=== PATIENT | female | born 1990 | race African-American/Black ===

== ENCOUNTER 2016-12-11 20:23 | Inpatient (IN) | payer OTHER ==
--- NOTE | ~2016-12-11 | DS ---
Unit #: [id number] #: [id number] Patient: CHELA MONACO [id number] [address] [place], [place] [address] [id number] I MR#: [id number] NAME: CHELA MONACO ROOM: 467 Age: 26 Sex: F Admission Date: 12/12/2016 : 1990 Discharge Date: 12/14/2016 Attending Physician: Frandy Howard M.D. Primary Care Physician: [facility] DISCHARGE SUMMARY CONSULTATIONS None. PROCEDURE PERFORMED On 12/12 she underwent laparoscopic cholecystectomy. ADMITTING DIAGNOSIS Chronic cholecystitis. DISCHARGE DIAGNOSIS Chronic cholecystitis. SECONDARY DIAGNOSIS Elevated transaminases. BRIEF HOSPITAL COURSE This is a 26-year-old lady who was admitted with symptoms that were related more to shortness of air and dyspnea. However, workup showed chronic cholecystitis, and she had more right upper quadrant pain, nausea during her workup. We were asked to see the patient from the ER, and she was consented for laparoscopic cholecystectomy based on imaging studies and symptoms. She underwent cholecystectomy and postoperatively had some nausea and some pain control issues, and because of that, she was kept an additional day. Her total bilirubin and alkaline phosphatase were normal, as well as a white count of 5,000 and a hemoglobin of 10. She did have an increase in her transaminases that was felt to be unrelated to her surgical procedure. DISPOSITION Discharged to home. FOLLOW-UP She is to follow up with Dr. Chavarria in the office in 2 weeks. DISCHARGE INSTRUCTIONS 1. She has been given instructions that it is okay to shower. 2. No driving until she is off pain pills for 24 hours. 3. Activity as tolerated. MEDICATIONS She was also given a script for [place] and Phenergan. Unit #: [id number] #: [id number] Patient: CHELA MONACO Dictated by... Ramo Luevano III, M.D. VCL/db TD: 12/15/2016 07:50 JOB #: [id number] DISCHARGE SUMMARY Page 1 of 1 X Lusco,Vincent C III MD X DISCHARGE SUMMARY
--- NOTE | ~2016-12-11 | EKG ---
PATIENT: CHELA MONACO UNIT #: [id number] Ventricular Rate: 80 BPM Atrial Rate: 80 BPM P-R Interval: 130 ms QRS Duration: 66 ms Q-T Interval: 358 ms QTC Calculation(Bezet): 412 ms P [place]: 59 degrees Calculated R [place]: 59 degrees Calculated T [place]: 28 degrees Diagnosis Line: Normal sinus rhythm with sinus arrhythmia Diagnosis Line: Possible Left atrial enlargement Diagnosis Line: Borderline ECG Diagnosis Line: When compared with ECG of 26-MAY-2016 02:01, Diagnosis Line: Premature atrial complexes are no longer Present Diagnosis Line: Confirmed by EUGENE ARELLANO MD ([id number]) on Diagnosis Line: 12/12/2016 8:54:55 AM INTERPRETING MD: EILEEN BRIONES
--- NOTE | ~2016-12-11 | OR ---
Unit #: [id number] #: [id number] Patient: CHELA MONACO [id number] [address] [place], [place] [address] [id number] Angelica MR#: [id number] NAME: CHELA MONACO ROOM: 467 Date of Procedure: 12/12/2016 Admission Date: 12/12/2016 Surgeon: Gurjit Chavarria M.D. : 1990 Attending Physician: Frandy Howard M.D. Primary Care Physician: [facility] OPERATIVE REPORT PREOPERATIVE DIAGNOSIS Cholecystitis. POSTOPERATIVE DIAGNOSIS Cholecystitis. PROCEDURE PERFORMED Laparoscopic cholecystectomy. ASSISTANT Ramo Luevano M.D. ANESTHESIA General endotracheal anesthesia. ESTIMATED BLOOD LOSS Minimal. IV FLUIDS 800 crystalloid. COMPLICATIONS None. INDICATIONS FOR PROCEDURE The patient is a young lady, who presents with right upper quadrant abdominal pain. Workup was consistent with cholecystitis. DESCRIPTION OF PROCEDURE The patient was taken to the operating theater and placed in supine position. General anesthesia was induced. Her abdomen was prepped and draped. A 5-mm Optiview trocar was placed in the right upper quadrant without difficulty. The abdomen was insufflated to 15 mmHg with CO2. Under direct vision, I placed a subxiphoid 10 mm, right lateral 5 mm, umbilical 5 mm. General inspection of the abdomen revealed acute cholecystitis with distended gallbladder. This was retracted up over the liver. I dissected the neck of the gallbladder and from the cystic duct. Its junction with the gallbladder was confirmed. It was thus skeletonized, doubly hemoclipped, and divided. The cystic artery laid immediately posterior. This was skeletonized, doubly hemoclipped, and divided. The gallbladder was removed from the gallbladder bed with Bovie electrocautery and delivered via the subxiphoid port. Hemostasis was Unit #: [id number] #: [id number] Patient: CHELA MONACO adequate. I removed the ports under direct vision and closed the fascia with 0 Vicryl and skin with 4-0 Vicryl. The patient tolerated the procedure well and sent to recovery room in good condition. Dictated by... Gurjit Chavarria M.D. GIORGIO/saad TD: 12/12/2016 23:34 JOB #: [id number] OPERATIVE REPORT Page 1 of 1 X Gurjit Chavarria MD PROCEDURE OPERATIVE NOTE
--- NOTE | ~2016-12-11 | CR72 ---
[facility] A Service of [facility] & [facility] RADIOLOGY TEXT RESULTS PATIENT: CHELA MONACO LOCATION: [facility] : [birth year] UNIT #: [id number] AGE: [address]: Edgar Arambula MD SEX: F ORDER DR: [id number] [facility] [address] [place], [place] [address] [id number] E MR#: [id number] Acc #: [id number] NAME: CHELA MONACO : 1990 SEX: F STUDY DATE/TIME: 12/11/2016 21:31 UNIT: [facility] ROOM: STUDY DESCRIPTION: CR Chest Single View Portable Attending Physician: Edgar Arambula M.D. Ordering Physician: Edgar Arambula M.D. Primary Care Physician: [facility] MEDICAL IMAGING REPORT This report is preliminary unless electronic signature is present EXAM Portable chest HISTORY Chest pain mid chest, hurts to breathe, onset today. COMPARISON 04/28/2016 FINDINGS A single AP portable view of the chest shows both lungs to be clear. The heart is normal in size. The mediastinal contour is normal. No significant bone abnormalities are seen. IMPRESSION Normal portable chest. Dictated by... Chuck Loja M.D. THIS IS AN ELECTRONICALLY VERIFIED REPORT Chuck Loja M.D. at 12/11/2016 10:35 PM Coby TD: 12/11/2016 22:31 JOB #: [id number] MEDICAL IMAGING REPORT Page 1 of 1 COPY
--- NOTE | ~2016-12-11 | CO ---
Unit #: [id number] #: [id number] Patient: CHELA MONACO [id number] [address] [place], [place] [address] [id number] I MR#: [id number] NAME: CHELA MONACO ROOM: 238 Age: 26 Sex: F Admission Date: 12/12/2016 : 1990 Attending Physician: Frandy Howard M.D. Primary Care Physician: [facility] CONSULTATION REPORT BRIEF HISTORY Patient is a 26-year-old lady who presents with epigastric right upper quadrant abdominal pain radiating to her back. Also, some shortness of breath. Some nausea, no vomiting, normal bowel movements, and no fevers. PAST HISTORY None. She has had no surgery and no chronic medications. SOCIAL HISTORY No smoking. No alcohol. FAMILY HISTORY Negative for GI malignancy. REVIEW OF SYSTEMS No cardiopulmonary complaints at this time. Else, 10 systems reviewed and negative. PHYSICAL EXAMINATION GENERAL: She is awake, alert, and appropriate. VITAL SIGNS: Currently afebrile. HEENT: Unremarkable. NECK: Supple. No JVD. Trachea midline. LUNGS: Clear to auscultation bilaterally. Breath sounds symmetric. CARDIOVASCULAR: Regular rate and rhythm. ABDOMEN: Soft. It is tender in the right upper quadrant. No rebound. No masses. No hernias. EXTREMITIES: No clubbing, cyanosis, or edema. DIAGNOSTIC STUDIES LABORATORY: Showed normal white count. Normal chemistries. IMAGING: Ultrasound shows multiple gallstones with gallstone impacted at the neck of the gallbladder. ASSESSMENT Cholecystitis. PLAN Recommend laparoscopic cholecystectomy. Discussed in detail risks and benefits. All questions were answered. Unit #: [id number] #: [id number] Patient: CHELA MONACO Dictated by... Dm Rao/gavino TD: 12/12/2016 10:35 JOB #: [id number] CONSULTATION REPORT Page 1 of 1 X Gurjit Chavarria MD X CONSULTATION REPORT
--- NOTE | ~2016-12-11 | US67 ---
[facility] A Service of [facility] RADIOLOGY TEXT RESULTS PATIENT: CHELA MONACO LOCATION: [facility] 238-01 : [birth year] UNIT #: [id number] AGE: [address]: Frandy Howard SEX: F ORDER DR: [id number] [facility] [address] [place], [place] [address] [id number] E MR#: [id number] Acc #: [id number] NAME: CHELA MONACO : 1990 SEX: F STUDY DATE/TIME: 12/11/2016 23:07 UNIT: [facility] ROOM: STUDY DESCRIPTION: US Gallbladder Attending Physician: Edgar Arambula M.D. Ordering Physician: Edgar Arambula M.D. Primary Care Physician: [facility] MEDICAL IMAGING REPORT This report is preliminary unless electronic signature is present EXAM Gallbladder ultrasound, 12/11 23:07 INDICATIONS Abdominal pain for 1 year but worsened today. FINDINGS Sonographic evaluation is performed of the right upper quadrant in multiple planes. Comparison is made with CT abdomen from 05/26/2016. Pancreas is normal. Liver parenchyma is homogeneous and normal without a focal mass. Main portal vein patent by Doppler. Right kidney is morphologically normal and nonobstructed. Gallbladder contains stones, including a stone in the gallbladder neck. There is no gallbladder wall thickening. However, the compressor operator portable does report a positive sonographic Patel's sign. Common duct is normal at 4 mm internal diameter. IMPRESSION 1. Gallstones, including a stone that may be impacted in the gallbladder neck. The gallbladder is mildly distended but there is no gallbladder wall thickening. However, the compressor operator portable does report a positive sonographic Patel's sign. Patient could be further evaluated with a HIDA scan, if needed, to assess for the possibility of acute cholecystitis. No biliary obstruction is seen. 2. The remainder of the right upper quadrant ultrasound is normal. Dictated by... Judson Marie Jr., M.D. THIS IS AN ELECTRONICALLY VERIFIED REPORT Judson Marie Jr., M.D. at 12/12/2016 5:35 AM RLK/psc [facility] A Service of [facility] RADIOLOGY TEXT RESULTS PATIENT: CHELA MONACO LOCATION: A 238-01 : [birth year] UNIT #: [id number] AGE: [address]: Frandy Howard SEX: F ORDER DR: TD: 12/12/2016 00:37 JOB #: [id number] MEDICAL IMAGING REPORT Page 1 of 1 COPY
[~2016-12-11 20:23] MED LIST: BACTRIM DS TABL1 TA1 PO; VOLTAREN75 MG PO; ZOFRAN ODT4 MG PO
[2016-12-11 21:43] LABS: BASOPHIL% 0.4 % (0-2.5); EOSINOPHIL# 0.1 X10e3 (0-0.7); EOSINOPHIL% 1.5 % (0.0-7.0); HEMATOCRIT 36.3 % (35.0-45.0); HEMOGLOBIN 11.6 gm/dL (12.0-16.0); LYMPHOCYTE# 3.8 X10e3 (1.0-3.5); LYMPHOCYTE% 45.8 % (17.0-45.0); MEAN CELL VOLUME 83.6 FL (83-96); MEAN CORPUSCULAR HEMOGLOBIN 26.8 PG (28-34); MEAN CORPUSCULAR HGB CONC 32.1 g/dL (30-36); MEAN PLATELET VOLUME 8.2 FL (6.5-11.5); MONOCYTE# 0.8 X10e3 (0-1.0); MONOCYTE% 9.3 % (3.0-12.0); NEUTROPHIL# 3.5 X10e3 (1.5-7.1); PLATELET COUNT 283 X10e3 (140-420); RED BLOOD COUNT 4.34 X10e (3.90-5.30); RED CELL DISTRIBUTION WIDTH 14.7 % (11.0-15.5); WHITE BLOOD COUNT 8.2 X10e3 (4.0-10.5)
[2016-12-11 21:46] LABS: DIFF IND NO
[2016-12-11 22:10] LABS: ALBUMIN SERUM 4.1 g/dL (3.5-5.0); BILIRUBIN, DIRECT 0.1 mg/dL (0.0-0.2); BILIRUBIN,INDIRECT 0.2 mg/dL (0.0-0.9); BILIRUBIN,TOTAL 0.3 mg/dL (0.2-2.0); BUN/CREATININE RATIO 27.5; CREATININE SERUM 0.4 mg/dL (0.6-1.4); GLOM FILT RATE Estimated 165.5 mL/min (>60); POTASSIUM 3.4 mmol/L (3.5-5.1)
[2016-12-12] MEDS ORDERED: NO MEDICATIONS (02:36)
[2016-12-14 02:53] LABS: BASOPHIL% 0.5 % (0-2.5); EOSINOPHIL% 0.8 % (0.0-7.0); HEMATOCRIT 33.4 % (35.0-45.0); HEMOGLOBIN 10.7 gm/dL (12.0-16.0); LYMPHOCYTE% 52.4 % (17.0-45.0); MEAN CELL VOLUME 84.1 FL (83-96); MEAN CORPUSCULAR HEMOGLOBIN 26.9 PG (28-34); MEAN PLATELET VOLUME 8.4 FL (6.5-11.5); MONOCYTE# 0.7 X10e3 (0-1.0); MONOCYTE% 12.6 % (3.0-12.0); NEUTROPHIL% 33.7 % (40-75); PLATELET COUNT 247 X10e3 (140-420); RED BLOOD COUNT 3.97 X10e (3.90-5.30); RED CELL DISTRIBUTION WIDTH 14.7 % (11.0-15.5); WHITE BLOOD COUNT 5.8 X10e3 (4.0-10.5)
[2016-12-14 02:54] LABS: DIFF IND YES
[2016-12-14 03:22] LABS: ALBUMIN SERUM 3.6 g/dL (3.5-5.0); CALCIUM SERUM 8.7 mg/dL (8.4-10.2); CREATININE SERUM 0.8 mg/dL (0.6-1.4); GLOM FILT RATE Estimated 117.2 mL/min (>60); POTASSIUM 3.4 mmol/L (3.5-5.1); PROTEIN TOTAL SERUM 6.7 g/dL (6.0-8.3)
[2016-12-14 03:36] LABS: ANISOCYTOSIS SL; OVALOCYTES PRESENT; PLATELET ESTIMATE NORMAL (NORMAL)
[2016-12-14] MEDS ORDERED: HYDROCODON-ACE1 EAC9 PO (09:01)
[2016-12-14] MEDS ORDERED: PHENERGAN25 M1 PO (09:02)
== END 2016-12-14 10:10 | disposition home or self-care (01) | DRG 419 ==
LOC: CED 20:23 → C4C 12-12 00:25 → CEDOF 12-12 00:25 → CED 12-12 00:25 → C4C 12-12 00:25 → CEDOF 12-12 01:42 → C2A 12-12 01:42 → C4C 12-12 18:16 → CPACUOF 12-12 18:43 → C4C 12-12 19:00
PROVIDERS: Emergency Medicine; Surgery
PROC: 0FT44ZZ Resection of Gallbladder, Percutaneous Endoscopic Approach (ICD-10-PCS; principal; 2016-12-12 15:30)
DX: K80.10 Calculus of gallbladder with chronic cholecystitis without obstruction (principal); R74.0 Nonspecific elevation of levels of transaminase and lactic acid dehydrogenase [LDH]
CPT/HCPCS: 36415; 71010; 76705; 80048; 80053; 80076; 83690; 84703; 85025; 88304; 93005; 96374; 96375; 99285; J0131; J0330; J1100; J1885; J2250; J2270; J2405; J2543; J2710; J3010

== ENCOUNTER 2016-12-23 00:47 | Emergency (ER) | payer OTHER ==
[~2016-12-23 00:47] MED LIST changes: +HYDROCODON-ACE1 EAC9 PO; +NO MEDICATIONS; +PHENERGAN25 M1 PO
[2016-12-23 03:46] LABS: URINE SOURCE CLEAN CATCH
[2016-12-23 03:50] LABS: URINE APPEARANCE CLEAR; URINE BILIRUBIN NEG (NEG); URINE BLOOD NEG (NEG); URINE COLOR DK YELLOW; URINE GLUCOSE NEG (NEG); URINE KETONE TRACE (NEG); URINE LEUKOCYTE ESTERASE TRACE (NEG); URINE NITRATE NEG (NEG); URINE PH 5.5 (5-8); URINE PROTEIN NEG (NEG); URINE SPECIFIC GRAVITY 1.027 (1.003-1.035)
[2016-12-23 03:53] LABS: URBCS1 AUWI 0-2 /[HPF] (0-2); URINE BACTERIA AUWI NEG (NEGATIVE); URINE SQUAMOUS EPITHELIAL CELL OCC /[HPF]
== END 2016-12-23 05:13 | disposition home or self-care (01) ==
LOC: CED 00:47
PROVIDERS: Emergency Medicine
DX: N30.00 Acute cystitis without hematuria (principal); Z90.49 Acquired absence of other specified parts of digestive tract
CPT/HCPCS: 81003; 84703; 99283

== ENCOUNTER 2017-01-23 20:01 | Emergency (ER) | payer OTHER | END 2017-01-26 13:13 | disposition home or self-care (01) | LOC: CED 20:01 | DX: Z53.21 Procedure and treatment not carried out due to patient leaving prior to being seen by health care provider (principal) ==

== ENCOUNTER 2017-01-30 10:41 | Emergency (ER) | payer OTHER ==
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
== END 2017-01-30 12:46 | disposition home or self-care (01) ==
LOC: CED 10:41 → CFTX 10:41
DX: S53.401A Unspecified sprain of right elbow, initial encounter (principal); W50.2XXA Accidental twist by another person, initial encounter; Y92.009 Unspecified place in unspecified non-institutional (private) residence as the place of occurrence of the external cause
CPT/HCPCS: 73080; 99283